=== PATIENT | female | born 1975 | race Caucasian/White ===

== ENCOUNTER 2017-07-04 12:32 | Inpatient (IN) | payer MEDICAID ==
[2017-07-04 13:12] LABS: % IMMATURE GRANULYOCYTES 0.1 % (0.0-1.1); ABSOLUTE IMMATURE GRANULOCYTES 0.01 10^3/uL (0.00-0.10); ADD DIFF? NO; ADD MORPH? NO; ADD SCAN? NO; ATYPICAL LYMPHOCYTE FLAG 10 (0-99); FRAGMENT RBC FLAG 0 (0-99); HEMATOCRIT 40.4 % (38.0-47.0); HEMOGLOBIN 13.7 g/dL (12.6-16.3); LEFT SHIFT FLG 0 (0-99); LIPEMIA HEMOLYSIS FLAG 90 (0-99); MEAN CELL HEMOGLOBIN 31.7 pg (27.9-34.1); MEAN CELL HEMOGLOBIN CONCENTR. 33.9 g/dL (32.4-36.7); MEAN CELL VOLUME 93.5 fL (81.5-99.8); MEAN PLATELET VOLUME 10.4 fL (8.7-11.7); PLATELET CLUMPS FLAG 0 (0-99); PLATELET COUNT 410 10^3/uL (150-400); RED BLOOD CELL COUNT 4.32 10^6/uL (4.18-5.33); RED CELL DISTRIBUTION WIDTH 13.8 % (11.5-15.2)
[2017-07-04 13:29] LABS: ANION GAP 14 mEq/L (8-16); CALCIUM 10.1 mg/dL (8.5-10.4); CARBON DIOXIDE 21 mEq/l (22-31); CHLORIDE 102 mEq/L (97-110); CREATININE 0.8 mg/dL (0.6-1.0); ETHANOL SERUM < 10 mg/dL (0-10); GLOMERULAR FILTRATION RATE > 60; GLUCOSE 86 mg/dL (70-100); POTASSIUM 4.2 mEq/L (3.5-5.2); SODIUM 137 mEq/L (134-144)
--- NOTE | 2017-07-04 14:14 | EDPHY ---
H & P Smoking Status: Never smoked Time Seen by Provider: 07/04/17 12:42 HPI/ROS: CHIEF COMPLAINT: M1 hold HISTORY OF PRESENT ILLNESS: 42-year-old female presents to the emergency department delusional with tangential thoughts. The patient states that she recently arrived from [place]. She states that she went to see her doctor for a colorectal problem and she states that they put her on a mental health hold. Patient currently has no physical complaints. No chest pain or difficulty breathing. No abdominal pain. No headache. She does not abuse drugs or alcohol. She states that she has depression and takes Abilify and Wellbutrin for "adult depression". REVIEW OF SYSTEMS: Constitutional: No fever, no chills. Eyes: No double or blurry vision. ENT: No sore throat. Respiratory: No cough, no shortness of breath. Cardiac: No chest pain. Gastrointestinal: No abdominal pain, vomiting or diarrhea. Genitourinary: No dysuria. Musculoskeletal: No neck or back pain. Skin: No rashes. Neurological: No headache. (Chelsea Lim) Past Medical/Surgical History: Depression (Chelsea Lim) Social History: Single (Chelsea Lim) Physical Exam: General Appearance: Alert, no distress. Eyes: Pupils equal and round. Extraocular motions are all intact. ENT: Mouth: Mucous membranes moist. Respiratory: No wheezing, rhonchi, or rales, lungs are clear to auscultation. Cardiovascular: Regular rate and rhythm. Gastrointestinal: Abdomen is soft and nontender, no masses, no rebound or guarding, bowel sounds normal. Neurological: Alert and oriented x 3, cranial nerves II through XII grossly intact Skin: Warm and dry, no rashes. Musculoskeletal: Nontender to palpate along the cervical, thoracic or lumbar spine. Neck is supple. Extremities: Full range of motion and no peripheral edema. Psychiatric: Patient is oriented X 3, there is no agitation. (Chelsea Lim) Constitutional: Initial Vital Signs Temperature (C) 36.9 C 07/04/17 12:42 Heart Rate 80 07/04/17 12:42 Respiratory Rate 16 07/04/17 12:42 Blood Pressure 148/101 H 07/04/17 12:42 O2 Sat (%) 98 07/04/17 12:42 O2 Delivery Mode Room Air Allergies/Adverse Reactions: Penicillins Allergy (Verified 07/04/17 12:41) red dye Allergy (Verified 07/04/17 12:41) Home Medications: Medication Instructions Recorded Abilify 07/04/17 Wellbutrin Sr 07/04/17 Medical Decision Making ED Course/Re-evaluation: 42-year-old female presents to the emergency department feeling depressed on M1 hold. She has been medically cleared and has been evaluated by mental health. She is awaiting inpatient placement. (Chelsea Lim) The patient was evaluated and managed by the physician prosthetic assistant. I have reviewed this chart and I agree with the findings and plan of care as documented , as indicated by my signature. I am the secondary supervising physician. I did assume primary care of this patient at 6:00 p.m.. She is being admitted to [address] [place] [address]. I have signed the EMTALA form. (Cesilia Barr) Differential Diagnosis: Depression including functional and major depression, situational depression, medication side effect, drugs and alcohol abuse. (Chelsea Lim) Care Turn Over: Care will be turned over to Dr. Cesilia Barr for disposition and plan. (Chelsea Lim) - Data Points Laboratory Results: Laboratory Results 07/04/17 12:55 07/04/17 12:55 07/04/17 07/04/17 07/04/17 13:58 12:55 12:55 WBC RBC Hgb Hct MCV MCH MCHC RDW Plt Count MPV Neut % (Auto) Lymph % (Auto) [place] % (Auto) Eos % (Auto) Baso % (Auto) Nucleat RBC Rel Count Absolute Neuts (auto) Absolute Lymphs (auto) Absolute Monos (auto) Absolute Eos (auto) Absolute Basos (auto) Absolute Nucleated RBC Immature Gran % Immature Gran # Sodium 137 mEq/L mEq/L (134-144) Potassium 4.2 mEq/L mEq/L (3.5-5.2) Chloride 102 mEq/L mEq/L (97-110) Carbon Dioxide 21 mEq/l L mEq/l (22-31) Anion Gap 14 mEq/L mEq/L (8-16) BUN 11 mg/dL mg/dL (7-23) Creatinine 0.8 mg/dL mg/dL (0.6-1.0) Estimated GFR > 60 Glucose 86 mg/dL mg/dL (70-100) Calcium 10.1 mg/dL mg/dL (8.5-10.4) TSH 1.470 uIU/mL uIU/mL (0.465-4.680) Beta HCG, Qual NEGATIVE Urine Opiates Screen NEGATIVE (NEGATIVE) Urine Barbiturates NEGATIVE (NEGATIVE) Ur Phencyclidine Scrn NEGATIVE (NEGATIVE) Ur Amphetamine Screen NEGATIVE (NEGATIVE) U Benzodiazepines Scrn NEGATIVE (NEGATIVE) Urine Cocaine Screen NEGATIVE (NEGATIVE) U Marijuana (THC) Screen NEGATIVE (NEGATIVE) Ethyl Alcohol < 10 mg/dL mg/dL (0-10) 07/04/17 12:55 WBC 8.07 10^3/uL 10^3/uL (3.80-9.50) RBC 4.32 10^6/uL 10^6/uL (4.18-5.33) Hgb 13.7 g/dL g/dL (12.6-16.3) Hct 40.4 % % (38.0-47.0) MCV 93.5 fL fL (81.5-99.8) MCH 31.7 pg pg (27.9-34.1) MCHC 33.9 g/dL g/dL (32.4-36.7) RDW 13.8 % % (11.5-15.2) Plt Count 410 10^3/uL H 10^3/uL (150-400) MPV 10.4 fL fL (8.7-11.7) Neut % (Auto) 46.6 % % (39.3-74.2) Lymph % (Auto) 38.8 % % (15.0-45.0) [place] % (Auto) 11.3 % % (4.5-13.0) Eos % (Auto) 2.5 % % (0.6-7.6) Baso % (Auto) 0.7 % % (0.3-1.7) Nucleat RBC Rel Count 0.0 % % (0.0-0.2) Absolute Neuts (auto) 3.76 10^3/uL 10^3/uL (1.70-6.50) Absolute Lymphs (auto) 3.13 10^3/uL H 10^3/uL (1.00-3.00) Absolute Monos (auto) 0.91 10^3/uL H 10^3/uL (0.30-0.80) Absolute Eos (auto) 0.20 10^3/uL 10^3/uL (0.03-0.40) Absolute Basos (auto) 0.06 10^3/uL 10^3/uL (0.02-0.10) Absolute Nucleated RBC 0.00 10^3/uL 10^3/uL (0-0.01) Immature Gran % 0.1 % % (0.0-1.1) Immature Gran # 0.01 10^3/uL 10^3/uL (0.00-0.10) Sodium Potassium Chloride Carbon Dioxide Anion Gap BUN Creatinine Estimated GFR Glucose Calcium TSH Beta HCG, Qual Urine Opiates Screen Urine Barbiturates Ur Phencyclidine Scrn Ur Amphetamine Screen U Benzodiazepines Scrn Urine Cocaine Screen U Marijuana (THC) Screen Ethyl Alcohol Departure - Departure Disposition: [facility] IP Clinical Impression: Depression Qualifiers: Depression Type: unspecified Qualified Code(s): F32.9 - Major depressive disorder, single episode, unspecified Condition: Good
[2017-07-04] MEDS ORDERED: MAGNESIUM HYDROXIDE 30 ML UDCUP PO PRN (20:45)
[2017-07-04] MEDS ORDERED: MAG HYDROX/AL HYDROX/SIMETH 30 ML UDCUP PO PRN (20:45)
[2017-07-04] MEDS ORDERED: OLANZapine DISINTEGR 5 MG TAB PO PRN (20:45)
[2017-07-04] MEDS ORDERED: NICOTINE POLACRILEX 2 MG GUM B PRN (20:45)
[2017-07-04] MEDS ORDERED: ACETAMINOPHEN 325 MG TAB PO PRN (20:45)
--- NOTE | 2017-07-05 13:40 | SOAPPROG ---
SOTREVOR Progress Note Assessment/Plan: Assessment: Plan: 07/05/17 13:39 Unable to fully assess patient today. Will return. Will obtain collateral from pt's payee if possible. Utilize prn's for now. Subjective: Pt seen briefly, chart reviewed, discussed with staff. She refuses to talk to me. States, "I'm, not talking to you, you're over 40 and not my demographic." Adamant about this, becoming agitated and hostile when I try to convince her that I am her psychiatrist and that she needs to talk to me. Unable to get any useful information from her. She states in the course of conversation that she does not have any mental illness and that she won't take any psychotropic medications. Objective: Vital Signs Temp Pulse Resp BP Pulse Ox 36.9 C 56 L 17 119/77 99 07/05/17 06:00 07/05/17 06:00 07/05/17 06:00 07/05/17 06:00 07/05/17 06:00 MSE: Marginally groomed, guarded, hostile, uncoop. Affect is constricted, irritable. Mood is not stated. TP appears disorganized, unable to give goal- directed answers to simple questions. TC reveals obvious disorganization, paranoia. - Time Spent With Patient Time Spent With Patient: 15" ICD10 Worksheet Patient Problems: Problems Problem Status Onset Depression Acute
--- NOTE | 2017-07-05 13:48 | BCON ---
[f rep st] BEHAVIORAL HEALTH CONSULTATION INTERNAL MEDICINE CONSULTATION DATE OF CONSULTATION: 07/05/2017 REFERRING PHYSICIAN: Ki Rose MD REASON FOR REFERRAL: Medical clearance for inpatient behavioral health stay. HISTORY OF PRESENT ILLNESS: This patient came to the [facility] Emergency Department, referred from a mental health clinic on an M1 hold for paranoid delusions and ideas of reference which were consistent with a psychotic episode. She was evaluated by the mental health team and admitted for further psychiatric care. Currently, she has no acute complaints. PAST MEDICAL HISTORY: 1. Mental health issues. 2. Daniel-Kandy syndrome. 3. Rectal prolapse. 4. A spinal cord injury. 5. Broken ankle. MEDICATIONS: She was taking aripiprazole and bupropion. ALLERGIES: Penicillins and red dye. SOCIAL HISTORY: She has been traveling, she has been in [place] for 2 weeks, and she does not provide any information beyond what can be gleaned from the medical record. FAMILY HISTORY: Noncontributory. REVIEW OF SYSTEMS: Could not be obtained due to noncooperation. PHYSICAL EXAM: VITAL SIGNS: Blood pressure is 119/77, heart rate is 56, respiratory rate is 17, oxygen saturation is 99% on room air, temperature is 36.9 degrees centigrade. Her weight is 58.5 kg, for a body mass index of 21.5. GENERAL: This is a well-nourished, well-developed woman, wearing large dark sunglasses, sitting cross-legged on the bed, eating a meal. She is verbally aggressive, threatening, and noncooperative. HEENT: Appears to be atraumatic, normocephalic. Dentition appears to be in good condition. NECK: Supple. CARDIOVASCULAR: Could not be completed. RESPIRATORY: She is not in respiratory distress, using no accessory muscles. There is no tachypnea. ABDOMINAL: Could not be completed. EXTREMITIES: There is no edema noted or cyanosis or clubbing. NEUROLOGIC: She is alert. She was not cooperative. Cranial nerves 2-12 appear to be grossly intact though her eyes are covered by dark sunglasses, limiting evaluation of cranial nerves 3-6. She moves all extremities. LABORATORY STUDIES: Drawn in the emergency department. CBC was overall within normal limits. She had a slightly elevated platelet count at 410. Serum chemistry reveals a slightly low carbon dioxide of 21; otherwise renal function and electrolytes were within normal limits. TSH was normal at 1.4, and beta hCG was negative for . Toxicology screen in the serum was negative for ethyl alcohol, and the urine was negative for any substances of abuse. ASSESSMENT/RECOMMENDATIONS: 1. Mental health issues pending further evaluation and management per Psychiatry and the mental health team. 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 There is no further specific evaluation or treatment indicated, and it should not affect her care on the inpatient behavioral health unit. I see no medical contraindications to this patient's continued stay on the inpatient behavioral health unit or to any psychiatric medications or procedures. Thank you very much for including me in the care of this patient, and please do not hesitate to contact me or the hospitalist service should there be need for further medical evaluation. /[id number]/MODL MTDD
--- NOTE | 2017-07-06 13:36 | BAPA ---
[f rep st] ADMISSION PSYCHIATRIC ASSESSMENT DATE OF SERVICE: 07/05/2017 CHIEF COMPLAINT: "I am not supposed to be here. You must release me immediately." HISTORY OF PRESENT ILLNESS: Patient is a 42-year-old female who was admitted from the emergency department after having presented to the walk-in clinic through [facility] requesting transportation and intermediate. She reported to them that she was stranded, having just arrived from [place], but could not explain why she was in [place]. She was disorganized and seemed to be paranoid as well. She describes some bizarre thoughts, such as the police placing people in groups that she described as "fillers" to conduct espionage and that she would be unsafe in this situation. She stated that she did not want to take any kind of medications though stated that she had them "forced on me" in the past. She then would deny any history of mental illness. She believes that a psychiatrist misdiagnosed her in the past. She did state that she had taken Abilify and Wellbutrin in the past. When I attempted to interview her yesterday and today, she became agitated, verbally aggressive, telling me to leave the room, and stating that she would scratch me with her fingernails or that she would find out where I live and kill my family. She also stated, "You are not in my demographic." She then made references to my genitalia in a threatening manner. She is unwilling to answer any questions, stating repeatedly that she does not have a mental illness and will not talk to a psychiatrist or take any psychotropic medications. PAST PSYCHIATRIC HISTORY: Somewhat unclear. The patient has clearly seen a psychiatrist and taken psychotropic medicines in the past, despite her admonitions otherwise. She stated to [facility] that she saw a Dr. Young at some point in the past though it is unknown where. As mentioned above, she stated she took Abilify and Wellbutrin at some point in the past. ALLERGIES: Penicillin and red dye. CURRENT MEDICATIONS: Patient reports no current medications. PAST MEDICAL HISTORY: Patient reports no medical problems. SOCIAL HISTORY: Patient was apparently previously living in [place] and came to [place] about 2 weeks ago. It is unclear whether this was intended to be a permanent move or not. She reported to [facility] that she had been staying in hotels and at the [facility] since arriving in [place]. No other history is obtainable by me at this time. FAMILY HISTORY: Unknown. ADMISSION LABORATORY: CBC is normal. Serum chemistries are normal. Beta hCG is negative. TSH is normal at 1.47. Urine drug screen is negative for all substances. Alcohol is less than detectable. MENTAL STATUS EXAMINATION: Reveals a small, thin, though healthy-appearing, female. She is wearing dark glasses because of some eye irritation. She is hostile and frequently makes hand gestures to get out of the room and shows me her long acrylic fingernails stating that she will scratch me. She states that she will harm me and my family. Her affect is irritable, labile. Her mood is described as "none of your business." Her thought process appears to be tangential. Her thought content appears to include paranoia and persecutory delusions. She is attentive and appears to be oriented to place, says she knows she is in a psychiatric facility, though she refused to answer specific questions. She makes threats to harm and kill my family, though makes no other threats toward herself or others. Her insight and judgment appear to be poor. IMPRESSION: 1. Bipolar I disorder, most recent episode manic, severe, with psychosis. Possible Schizoaffective disorder, Bipolar type. 2. Homelessness, lack of supports, recent travel. 3. Chronic illness. 4. Treatment non-compliance. Patient is a 42-year-old female with a history of likely bipolar disorder who seems to be suffering from a recurrent divya with psychosis. She is quite disagreeable, threatening, and uncooperative. She is currently on an M1 hold, which we will convert to a short-term certification, and then proceed with a court ordered medication petition. In the interim, we will use medications on an emergency basis and attempt to establish a therapeutic alliance. I will likely utilize Zyprexa as the primary agent at this time. I am unable to review the risks, benefits, and alternatives with the patient due to her highly uncooperative manner and will reserve this only for emergency needs. Estimated length of stay is 7-10 days with treatment. Longer if we have to wait for court. /[id number]/MODL MTDD
--- NOTE | 2017-07-08 09:02 | SOAPPROG ---
SOAP Progress Note Assessment/Plan: Assessment: Plan: 07/05/17 13:39 Unable to fully assess patient today. Will return. Will obtain collateral from pt's payee if possible. Utilize prn's for now. 07/08/17 09:03 Remains agitated, hostile. Will continues to encourage meds, place on STC. I am unable to discuss criteria for discontinuing STC due to pt's refusal to talk to me. Will enter petition for COM. Subjective: LATE ENTRY FOR 07/07/17. Pt seen briefly, discussed with staff. She again refuses to talk to me. Becomes agitated, forcing me out of her room when I attempted to interview her. REmains isolative, paranoid, insulting to staff and fellow patients, irritable /hostile. She continues to refuse consideration of psychotropic medications. I specifically discussed with her the possible use of Zyprexa. Objective: Vital Signs Temp Pulse Resp BP Pulse Ox 36.9 C 56 L 17 119/77 99 07/05/17 06:00 07/05/17 06:00 07/05/17 06:00 07/05/17 06:00 07/05/17 06:00 MSE: Agitated, hostile. Refuses interview. Affect is irritable, elevated, expansive. TP appears disorganized, repeats phrases, "I'm wont talk to you, you 're too old" and "Get out of her you have saggy balls." - Time Spent With Patient Time Spent With Patient: 15" - Pending Discharge Pending Discharge Within 24 Hours: No Pending Discharge Within 48 Hours: No ICD10 Worksheet Patient Problems: Problems Problem Status Onset Depression Acute
--- NOTE | 2017-07-08 19:55 | SOAPPROG ---
SOAP Progress Note Assessment/Plan: Assessment: Plan: 07/05/17 13:39 Unable to fully assess patient today. Will return. Will obtain collateral from pt's payee if possible. Utilize prn's for now. 07/08/17 09:03 Remains agitated, hostile. Will continues to encourage meds, place on STC. I am unable to discuss criteria for discontinuing STC due to pt's refusal to talk to me. Will enter petition for COM. 07/08/17 19:55 Remains psychotic, threatening. Will [facility], send request for COM. Subjective: Pt seen, discussed with staff. Refuses interview again. Remains isolative, threatening, paranoid. Continues to refuse all meds. Staff observed pt sitting in room talking loudly to self on evening shift yesterday. Objective: Vital Signs Temp Pulse Resp BP Pulse Ox 36.9 C 56 L 17 119/77 99 07/05/17 06:00 07/05/17 06:00 07/05/17 06:00 07/05/17 06:00 07/05/17 06:00 MSE: Agitated, hostile. Affect is o/w volatile, angry. TP appears disorganized. TC reveals RIS, paranoia. - Time Spent With Patient Time Spent With Patient: 15' ICD10 Worksheet Patient Problems: Problems Problem Status Onset Depression Acute
[2017-07-08] MEDS: OLANZapine DISINTEGR 10 MG TAB PO SCH (20:20)
--- NOTE | 2017-07-09 15:18 | SOAPPROG ---
SOAP Progress Note Assessment/Plan: Assessment: Plan: 07/05/17 13:39 Unable to fully assess patient today. Will return. Will obtain collateral from pt's payee if possible. Utilize prn's for now. 07/08/17 09:03 Remains agitated, hostile. Will continues to encourage meds, place on STC. I am unable to discuss criteria for discontinuing STC due to pt's refusal to talk to me. Will enter petition for COM. 07/08/17 19:55 Remains psychotic, threatening. Will [facility], send request for COM. 07/09/17 15:18 No change. Remains quite psychotic. [facility]. COM request sent. Will not allow pt to purposefully incite aggressive or violent behaviors. Will utilize show of force or E-meds if necessary as she is completely unresponsive to verbal redirection. Subjective: Pt seen, discussed with staff. Remains very hostile. Refuses to talk to me again today. Screams at me when I ask if she will discuss her plan of care, "Fuck you you fucking faggot. You have saggy balls and want to rape me! Get out of here." Later came out of room when another patient was acting out loudly and began yelling insults at security and trying to incite the agitated patients. When I arrived, she was smirking and huber back to her room as if pleased with her behaviors. Objective: Vital Signs Temp Pulse Resp BP Pulse Ox 36.9 C 56 L 17 119/77 99 07/05/17 06:00 07/05/17 06:00 07/05/17 06:00 07/05/17 06:00 07/05/17 06:00 - Time Spent With Patient Time Spent With Patient: 15" ICD10 Worksheet Patient Problems: Problems Problem Status Onset Depression Acute
[2017-07-09] MEDS: OLANZapine DISINTEGR 10 MG TAB PO SCH (20:14)
--- NOTE | 2017-07-10 12:54 | SOAPPROG ---
SOAP Progress Note Assessment/Plan: Assessment: Plan: 07/05/17 13:39 Unable to fully assess patient today. Will return. Will obtain collateral from pt's payee if possible. Utilize prn's for now. 07/08/17 09:03 Remains agitated, hostile. Will continues to encourage meds, place on STC. I am unable to discuss criteria for discontinuing STC due to pt's refusal to talk to me. Will enter petition for COM. 07/08/17 19:55 Remains psychotic, threatening. Will [facility], send request for COM. 07/09/17 15:18 No change. Remains quite psychotic. [facility]. COM request sent. Will not allow pt to purposefully incite aggressive or violent behaviors. Will utilize show of force or E-meds if necessary as she is completely unresponsive to verbal redirection. 07/10/17 12:53 No change. [facility]. Subjective: Pt seen, discussed with staff. Refuses interview with dave tom. Continues to isolate in her room except for meals. Continues to refuse meds. Objective: Vital Signs Temp Pulse Resp BP Pulse Ox 36.9 C 56 L 17 119/77 99 07/05/17 06:00 07/05/17 06:00 07/05/17 06:00 07/05/17 06:00 07/05/17 06:00 MSE: Agitated, hostile, uncoop. Affect is constricted, irritable. Mood is not stated. Appears disorganized. - Time Spent With Patient Time Spent With Patient: 15" ICD10 Worksheet Patient Problems: Problems Problem Status Onset Depression Acute
[2017-07-10] MEDS: OLANZapine DISINTEGR 10 MG TAB PO SCH (20:48)
[2017-07-11] MEDS: OLANZapine DISINTEGR 10 MG TAB PO SCH (19:54)
--- NOTE | 2017-07-11 20:33 | SOAPPROG ---
SOAP Progress Note Assessment/Plan: Assessment: Plan: 07/05/17 13:39 Unable to fully assess patient today. Will return. Will obtain collateral from pt's payee if possible. Utilize prn's for now. 07/08/17 09:03 Remains agitated, hostile. Will continues to encourage meds, place on STC. I am unable to discuss criteria for discontinuing STC due to pt's refusal to talk to me. Will enter petition for COM. 07/08/17 19:55 Remains psychotic, threatening. Will [facility], send request for COM. 07/09/17 15:18 No change. Remains quite psychotic. [facility]. [facility] request sent. Will not allow pt to purposefully incite aggressive or violent behaviors. Will utilize show of force or E-meds if necessary as she is completely unresponsive to verbal redirection. 07/10/17 12:53 No change. CCM. 07/11/17 20:33 Remains psychotic. [facility]. Await hearing for COM. Subjective: Pt seen, discussed with staff. Continues to isolate in her room. Profanely refuses interview again today. Refuses to discuss meds or treatment plan. refusing all treatments. Objective: Vital Signs Temp Pulse Resp BP Pulse Ox 36.9 C 56 L 17 119/77 99 07/05/17 06:00 07/05/17 06:00 07/05/17 06:00 07/05/17 06:00 07/05/17 06:00 MSE: Lying in bed swearing at me. Refuses to get up until she jumps out of bed , puts on her dark glasses and slams the door in my face. - Time Spent With Patient Time Spent With Patient: 15" ICD10 Worksheet Patient Problems: Problems Problem Status Onset Depression Acute
--- NOTE | 2017-07-12 11:48 | SOAPPROG ---
SOAP Progress Note Assessment/Plan: Assessment: Plan: 07/05/17 13:39 Unable to fully assess patient today. Will return. Will obtain collateral from pt's payee if possible. Utilize prn's for now. 07/08/17 09:03 Remains agitated, hostile. Will continues to encourage meds, place on STC. I am unable to discuss criteria for discontinuing STC due to pt's refusal to talk to me. Will enter petition for COM. 07/08/17 19:55 Remains psychotic, threatening. Will [facility], send request for COM. 07/09/17 15:18 No change. Remains quite psychotic. [facility]. [facility] request sent. Will not allow pt to purposefully incite aggressive or violent behaviors. Will utilize show of force or E-meds if necessary as she is completely unresponsive to verbal redirection. 07/10/17 12:53 No change. CCM. 07/11/17 20:33 Remains psychotic. [facility]. Await hearing for COM. 07/12/17 11:48 Remains psychotic, agitated. [facility]. Await COM hearing. Subjective: Pt seen, discussed with staff. Continues to refuse interview. Unable to get any useful information. She continues to refuse medications. Staff notes poor PO intake, eating less than one full meal per day. Was eating only pre- packaged meals but now is refusing almost all meals. Objective: Vital Signs Temp Pulse Resp BP Pulse Ox 36.9 C 56 L 17 119/77 99 07/05/17 06:00 07/05/17 06:00 07/05/17 06:00 07/05/17 06:00 07/05/17 06:00 MSE: Hostile, uncoop. Affect is o/w irritable. TP appears disorganized. TC appears to be paranoid, ? AH's. - Time Spent With Patient Time Spent With Patient: 15" ICD10 Worksheet Patient Problems: Problems Problem Status Onset Depression Acute
[2017-07-12] MEDS: OLANZapine DISINTEGR 10 MG TAB PO SCH (20:08)
--- NOTE | 2017-07-13 14:06 | SOAPPROG ---
SOAP Progress Note Assessment/Plan: Assessment: Bipolar, mixed, irritable - provisional No meaningful interaction with me today. No clear improvement Plan: Continue current plan. 07/13/17 14:06 Subjective: "Get out of my room." "You're a fucking faggot." "I know where you live." "Close my door." Slept 10 hours per sleep record. Declines interview. Objective: Vital Signs Temp Pulse Resp BP Pulse Ox 36.9 C 56 L 17 119/77 99 07/05/17 06:00 07/05/17 06:00 07/05/17 06:00 07/05/17 06:00 07/05/17 06:00 Medications Generic Name Dose Route Start Last Admin Trade Name Freq PRN Reason Stop Dose Admin Olanzapine 10 mg 07/08/17 20:15 07/12/17 20:08 Zyprexa Zydis PO 01/04/18 20:14 Not Given HS BROOKE Lying in bed with covers pulled over head and does not interact with me to any meaningful degree. ICD10 Worksheet Patient Problems: Problems Problem Status Onset Depression Acute
[2017-07-13] MEDS: OLANZapine DISINTEGR 10 MG TAB PO SCH (21:05)
--- NOTE | 2017-07-14 14:23 | SOAPPROG ---
SOAP Progress Note Assessment/Plan: Assessment: Plan: 07/05/17 13:39 Unable to fully assess patient today. Will return. Will obtain collateral from pt's payee if possible. Utilize prn's for now. 07/08/17 09:03 Remains agitated, hostile. Will continues to encourage meds, place on STC. I am unable to discuss criteria for discontinuing STC due to pt's refusal to talk to me. Will enter petition for COM. 07/08/17 19:55 Remains psychotic, threatening. Will [facility], send request for COM. 07/09/17 15:18 No change. Remains quite psychotic. [facility]. [facility] request sent. Will not allow pt to purposefully incite aggressive or violent behaviors. Will utilize show of force or E-meds if necessary as she is completely unresponsive to verbal redirection. 07/10/17 12:53 No change. CCM. 07/11/17 20:33 Remains psychotic. [facility]. Await hearing for COM. 07/12/17 11:48 Remains psychotic, agitated. [facility]. Await COM hearing. 07/14/17 14:23 No change. Pt's lack of nutritional intake is concerning. Will attempt to intervene. [facility]. Await COM hearing. Subjective: Pt seen, discussed with staff. Continues to isolate in her room. Threatening to cut staff members' heads off and kill their children. Some collateral information obtained, but not clinically useful. Continues to refuse all medications. Eating poorly, refusing most meals now. Objective: Vital Signs Temp Pulse Resp BP Pulse Ox 36.9 C 56 L 17 119/77 99 07/05/17 06:00 07/05/17 06:00 07/05/17 06:00 07/05/17 06:00 07/05/17 06:00 MSE: Hostile, guarded, profane. Affect is irritable, expansive. TP is disorganized. TC reveals paranoia, AH's. - Time Spent With Patient Time Spent With Patient: 15" ICD10 Worksheet Patient Problems: Problems Problem Status Onset Depression Acute
[2017-07-14] MEDS: OLANZapine DISINTEGR 10 MG TAB PO SCH (19:47)
[2017-07-15] MEDS ORDERED: HALOPERIDOL LACT 5 MG/ML INJ IM PRN ×2 (10:43)
[2017-07-15] MEDS ORDERED: OLANZapine 10 MG/2 ML VIAL IM PRN (11:22)
[2017-07-15] MEDS: OLANZapine 10 MG/2 ML VIAL IM PRN ×2 (11:53→20:27)
--- NOTE | 2017-07-15 17:24 | SOAPPROG ---
SOAP Progress Note Assessment/Plan: Assessment: Plan: 07/05/17 13:39 Unable to fully assess patient today. Will return. Will obtain collateral from pt's payee if possible. Utilize prn's for now. 07/08/17 09:03 Remains agitated, hostile. Will continues to encourage meds, place on STC. I am unable to discuss criteria for discontinuing STC due to pt's refusal to talk to me. Will enter petition for COM. 07/08/17 19:55 Remains psychotic, threatening. Will [facility], send request for COM. 07/09/17 15:18 No change. Remains quite psychotic. [facility]. [facility] request sent. Will not allow pt to purposefully incite aggressive or violent behaviors. Will utilize show of force or E-meds if necessary as she is completely unresponsive to verbal redirection. 07/10/17 12:53 No change. CCM. 07/11/17 20:33 Remains psychotic. [facility]. Await hearing for COM. 07/12/17 11:48 Remains psychotic, agitated. [facility]. Await COM hearing. 07/14/17 14:23 No change. Pt's lack of nutritional intake is concerning. Will attempt to intervene. [facility]. Await COM hearing. 07/15/17 17:20 Remains agitated, threatening, aggressive, psychotic. Appreciate input from [facility]. She does not appear to be in a life-threatening situation at this point that would necessitate a feeding tube, but she is close. Will employ E-meds consistently due to urgent nature of nutritional issue and aggression that both have foundations in psychosis. Await hearing for COM. Subjective: Pt seen, discussed with staff. Remains hostile, threatening. Continues to refuse to eat or drink. Staff suspects pt is drinking from faucet in room. Vital signs are stable and she is energetic. Staff attempted to meet with her to discuss this and she became agitated and threatening and threw her food tray. Objective: Vital Signs Temp Pulse Resp BP Pulse Ox 36.9 C 56 L 17 119/77 99 07/05/17 06:00 07/05/17 06:00 07/05/17 06:00 07/05/17 06:00 07/05/17 06:00 MSE: Agitated, profane, threatening, violent. TP is disorganized. TC reveals paranoia, AH's. - Time Spent With Patient Time Spent With Patient: 25" - Pending Discharge Pending Discharge Within 24 Hours: No Pending Discharge Within 48 Hours: No ICD10 Worksheet Patient Problems: Problems Problem Status Onset Depression Acute
[2017-07-15] MEDS: OLANZapine DISINTEGR 10 MG TAB PO SCH (20:51)
[2017-07-16] MEDS ORDERED: OLANZapine 10 MG/2 ML VIAL IM PRN (12:31)
[2017-07-16] MEDS ORDERED: OLANZapine DISINTEGR 10 MG TAB PO PRN (12:31)
--- NOTE | 2017-07-16 13:06 | SOAPPROG ---
SOAP Progress Note Assessment/Plan: Assessment: Plan: 07/05/17 13:39 Unable to fully assess patient today. Will return. Will obtain collateral from pt's payee if possible. Utilize prn's for now. 07/08/17 09:03 Remains agitated, hostile. Will continues to encourage meds, place on STC. I am unable to discuss criteria for discontinuing STC due to pt's refusal to talk to me. Will enter petition for COM. 07/08/17 19:55 Remains psychotic, threatening. Will [facility], send request for COM. 07/09/17 15:18 No change. Remains quite psychotic. [facility]. [facility] request sent. Will not allow pt to purposefully incite aggressive or violent behaviors. Will utilize show of force or E-meds if necessary as she is completely unresponsive to verbal redirection. 07/10/17 12:53 No change. CCM. 07/11/17 20:33 Remains psychotic. [facility]. Await hearing for COM. 07/12/17 11:48 Remains psychotic, agitated. [facility]. Await COM hearing. 07/14/17 14:23 No change. Pt's lack of nutritional intake is concerning. Will attempt to intervene. [facility]. Await COM hearing. 07/15/17 17:20 Remains agitated, threatening, aggressive, psychotic. Appreciate input from [facility]. She does not appear to be in a life-threatening situation at this point that would necessitate a feeding tube, but she is close. Will employ E-meds consistently due to urgent nature of nutritional issue and aggression that both have foundations in psychosis. Await hearing for COM. 07/16/17 13:05 No change in clinical condition. Will [facility] inc: Emeds due to gravity of condition. Subjective: Pt seen, discussed with staff. Continues to isolate in her room. Refusing all meds. Given Emeds yesterday with notable decrease in agitation. Continues to refuse food offered by staff. Objective: Vital Signs Temp Pulse Resp BP Pulse Ox 36.9 C 56 L 17 119/77 99 07/05/17 06:00 07/05/17 06:00 07/05/17 06:00 07/05/17 06:00 07/05/17 06:00 MSE: Angry, uncoop, threatening. TP is disorganized. TC reveals paranoia, AH' s. - Time Spent With Patient Time Spent With Patient: 15" ICD10 Worksheet Patient Problems: Problems Problem Status Onset Depression Acute
[2017-07-16] MEDS: OLANZapine DISINTEGR 10 MG TAB PO SCH (20:52)
[2017-07-17] MEDS ORDERED: OLANZapine 10 MG/2 ML VIAL IM PRN (13:11)
--- NOTE | 2017-07-17 13:19 | SOAPPROG ---
SOAP Progress Note Assessment/Plan: Assessment: Per Dr. Egan's notes: 07/05/17 13:39 Unable to fully assess patient today. Will return. Will obtain collateral from pt's payee if possible. Utilize prn's for now. 07/08/17 09:03 Remains agitated, hostile. Will continues to encourage meds, place on STC. I am unable to discuss criteria for discontinuing STC due to pt's refusal to talk to me. Will enter petition for COM. 07/08/17 19:55 Remains psychotic, threatening. Will [facility], send request for COM. 07/09/17 15:18 No change. Remains quite psychotic. [facility]. [facility] request sent. Will not allow pt to purposefully incite aggressive or violent behaviors. Will utilize show of force or E-meds if necessary as she is completely unresponsive to verbal redirection. 07/10/17 12:53 No change. CCM. 07/11/17 20:33 Remains psychotic. [facility]. Await hearing for COM. 07/12/17 11:48 Remains psychotic, agitated. [facility]. Await [facility] hearing. 07/14/17 14:23 No change. Pt's lack of nutritional intake is concerning. Will attempt to intervene. [facility]. Await COM hearing. 07/15/17 17:20 Remains agitated, threatening, aggressive, psychotic. Appreciate input from [facility]. She does not appear to be in a life-threatening situation at this point that would necessitate a feeding tube, but she is close. Will employ E-meds consistently due to urgent nature of nutritional issue and aggression that both have foundations in psychosis. Await hearing for COM. 07/16/17 13:05 No change in clinical condition. Will [facility] inc: Emeds due to gravity of condition. 07/17/17 13:15 Plan: 1. Continue E-meds Day #4 2. Will change Zyprexa to 10mg BID Subjective: Met with patient and discussed with staff. Patient continues to isolate in her room and refuses to eat food, but staff observe that she is drinking water. When MD attempted to talk to her, she yelled at him from bed, "Get out of here motherfucker!" Objective: Vital Signs Temp Pulse Resp BP Pulse Ox 36.9 C 56 L 17 119/77 99 07/05/17 06:00 07/05/17 06:00 07/05/17 06:00 07/05/17 06:00 07/05/17 06:00 MSE: Hostile, angry, threatening. Affect: Hostile Mood: Angry TP: Disorganized TC: Paranoid Insight/Judgment: Impaired - Time Spent With Patient Time Spent With Patient: 10" - Pending Discharge Pending Discharge Within 24 Hours: No Pending Discharge Within 48 Hours: No ICD10 Worksheet Patient Problems: Problems Problem Status Onset Depression Acute
[2017-07-17] MEDS: OLANZapine DISINTEGR 10 MG TAB PO SCH ×2 (14:14→20:44)
[2017-07-17] MEDS ORDERED: OLANZapine DISINTEGR 10 MG TAB PO SCH (21:00)
[2017-07-18] MEDS: OLANZapine DISINTEGR 10 MG TAB PO SCH ×2 (10:04→21:00)
--- NOTE | 2017-07-18 12:57 | SOAPPROG ---
SOAP Progress Note Assessment/Plan: Assessment: Per Dr. Egan's notes: 07/05/17 13:39 Unable to fully assess patient today. Will return. Will obtain collateral from pt's payee if possible. Utilize prn's for now. 07/08/17 09:03 Remains agitated, hostile. Will continues to encourage meds, place on STC. I am unable to discuss criteria for discontinuing STC due to pt's refusal to talk to me. Will enter petition for COM. 07/08/17 19:55 Remains psychotic, threatening. Will [facility], send request for COM. 07/09/17 15:18 No change. Remains quite psychotic. [facility]. [facility] request sent. Will not allow pt to purposefully incite aggressive or violent behaviors. Will utilize show of force or E-meds if necessary as she is completely unresponsive to verbal redirection. 07/10/17 12:53 No change. CCM. 07/11/17 20:33 Remains psychotic. [facility]. Await hearing for COM. 07/12/17 11:48 Remains psychotic, agitated. [facility]. Await COM hearing. 07/14/17 14:23 No change. Pt's lack of nutritional intake is concerning. Will attempt to intervene. [facility]. Await COM hearing. 07/15/17 17:20 Remains agitated, threatening, aggressive, psychotic. Appreciate input from [facility]. She does not appear to be in a life-threatening situation at this point that would necessitate a feeding tube, but she is close. Will employ E-meds consistently due to urgent nature of nutritional issue and aggression that both have foundations in psychosis. Await hearing for COM. 07/16/17 13:05 No change in clinical condition. Will [facility] inc: Emeds due to gravity of condition. 07/17/17 13:15 Plan: 1. Continue E-meds Day #4 2. Will change Zyprexa to 10mg BID 07/18/17 12:53 1. Patient has been calmer, less hostile when engaging with staff. She took PO Zyprexa voluntarily this AM. 2. Continue on E-meds Day #5 as patient is improving slightly. 3. Patient ate several yogurts for snack yesterday and a peanut butter and jelly sandwich. She has been filling water bottle from faucet in her room and drinking regularly. Subjective: Met with patient and discussed with staff. Patient was out of her room wearing sunglasses. She made requests of staff in less hostile attitude. However, she did tell MD to "fuck off" when he attempted to engage her in conversation. She also called [facility] and reported she was being held captive. Her phone privileges have been restricted. Objective: Vital Signs Temp Pulse Resp BP Pulse Ox 36.9 C 56 L 17 119/77 99 07/05/17 06:00 07/05/17 06:00 07/05/17 06:00 07/05/17 06:00 07/05/17 06:00 MSE: Less angry, hostile, but still verbally abusive to some staff. Affect: Labile Mood: Angry TP: Disorganized, illogical TC: Denies any SI/HI, paranoid , delusions Insight/Judgment: Impaired - Time Spent With Patient Time Spent With Patient: 10" - Pending Discharge Pending Discharge Within 24 Hours: No Pending Discharge Within 48 Hours: No ICD10 Worksheet Patient Problems: Problems Problem Status Onset Depression Acute
[2017-07-18] MEDS ORDERED: OLANZapine 10 MG/2 ML VIAL IM PRN (13:11)
[2017-07-19] MEDS: OLANZapine DISINTEGR 10 MG TAB PO SCH ×2 (08:39→20:51)
[2017-07-19] MEDS ORDERED: OLANZapine 10 MG/2 ML VIAL IM PRN (16:46)
--- NOTE | 2017-07-19 16:46 | SOAPPROG ---
SOAP Progress Note Assessment/Plan: Assessment: Plan: 07/05/17 13:39 Unable to fully assess patient today. Will return. Will obtain collateral from pt's payee if possible. Utilize prn's for now. 07/08/17 09:03 Remains agitated, hostile. Will continues to encourage meds, place on STC. I am unable to discuss criteria for discontinuing STC due to pt's refusal to talk to me. Will enter petition for COM. 07/08/17 19:55 Remains psychotic, threatening. Will [facility], send request for COM. 07/09/17 15:18 No change. Remains quite psychotic. [facility]. [facility] request sent. Will not allow pt to purposefully incite aggressive or violent behaviors. Will utilize show of force or E-meds if necessary as she is completely unresponsive to verbal redirection. 07/10/17 12:53 No change. CCM. 07/11/17 20:33 Remains psychotic. [facility]. Await hearing for COM. 07/12/17 11:48 Remains psychotic, agitated. [facility]. Await COM hearing. 07/14/17 14:23 No change. Pt's lack of nutritional intake is concerning. Will attempt to intervene. [facility]. Await COM hearing. 07/15/17 17:20 Remains agitated, threatening, aggressive, psychotic. Appreciate input from [facility]. She does not appear to be in a life-threatening situation at this point that would necessitate a feeding tube, but she is close. Will employ E-meds consistently due to urgent nature of nutritional issue and aggression that both have foundations in psychosis. Await hearing for COM. 07/16/17 13:05 No change in clinical condition. Will [facility] inc: Emeds due to gravity of condition. 07/19/17 16:45 Improved with Zyprexa. [facility]. Subjective: Pt seen, discussed with staff, chart reviewed. She continues to refuse to speak to me though reportedly did have a brief conversation with the RN earlier before decompensating into disorganized psychotic thought. Has bee compliant with Zyprexa with threat of IM. Eating better since starting Zyprexa. Objective: Vital Signs Temp Pulse Resp BP Pulse Ox 36.9 C 56 L 17 119/77 99 07/05/17 06:00 07/05/17 06:00 07/05/17 06:00 07/05/17 06:00 07/05/17 06:00 - Time Spent With Patient Time Spent With Patient: 15" ICD10 Worksheet Patient Problems: Problems Problem Status Onset Depression Acute
[2017-07-20] MEDS: OLANZapine DISINTEGR 10 MG TAB PO SCH ×2 (08:46→20:20)
--- NOTE | 2017-07-20 17:18 | SOAPPROG ---
SOAP Progress Note Assessment/Plan: Assessment: Plan: 07/05/17 13:39 Unable to fully assess patient today. Will return. Will obtain collateral from pt's payee if possible. Utilize prn's for now. 07/08/17 09:03 Remains agitated, hostile. Will continues to encourage meds, place on STC. I am unable to discuss criteria for discontinuing STC due to pt's refusal to talk to me. Will enter petition for COM. 07/08/17 19:55 Remains psychotic, threatening. Will [facility], send request for COM. 07/09/17 15:18 No change. Remains quite psychotic. [facility]. [facility] request sent. Will not allow pt to purposefully incite aggressive or violent behaviors. Will utilize show of force or E-meds if necessary as she is completely unresponsive to verbal redirection. 07/10/17 12:53 No change. CCM. 07/11/17 20:33 Remains psychotic. [facility]. Await hearing for COM. 07/12/17 11:48 Remains psychotic, agitated. [facility]. Await COM hearing. 07/14/17 14:23 No change. Pt's lack of nutritional intake is concerning. Will attempt to intervene. [facility]. Await COM hearing. 07/15/17 17:20 Remains agitated, threatening, aggressive, psychotic. Appreciate input from [facility]. She does not appear to be in a life-threatening situation at this point that would necessitate a feeding tube, but she is close. Will employ E-meds consistently due to urgent nature of nutritional issue and aggression that both have foundations in psychosis. Await hearing for COM. 07/16/17 13:05 No change in clinical condition. Will [facility] inc: Emeds due to gravity of condition. 07/19/17 16:45 Improved with Zyprexa. CCM. 07/20/17 17:18 Remains psychotic. Will [facility] inc: Emeds. Responding well to this. Subjective: Pt seen, discussed with staff. Continues to refuse interview with me. I asked several times to discuss her meds and the upcoming court hearing but she refuses. She has been compliant with PO Emeds to avoid IM's. Eating much better, though continues to only eat packaged foods. Less profane and threatening with some female staff she has built a rapport with. Remains paranoid, stating to RN that she is searching for some criminals and describing complex groups of people working for and against her. Objective: Vital Signs Temp Pulse Resp BP Pulse Ox 36.9 C 56 L 17 119/77 99 07/05/17 06:00 07/05/17 06:00 07/05/17 06:00 07/05/17 06:00 07/05/17 06:00 - Time Spent With Patient Time Spent With Patient: 15" ICD10 Worksheet Patient Problems: Problems Problem Status Onset Depression Acute
[2017-07-20] MEDS ORDERED: OLANZapine 10 MG/2 ML VIAL IM PRN (17:21)
[2017-07-21] MEDS: OLANZapine DISINTEGR 10 MG TAB PO SCH ×4 (08:23→20:03)
[2017-07-22] MEDS: OLANZapine DISINTEGR 10 MG TAB PO SCH ×2 (08:41→20:48)
--- NOTE | 2017-07-22 17:02 | SOAPPROG ---
SOAP Progress Note Assessment/Plan: Assessment: Plan: 07/05/17 13:39 Unable to fully assess patient today. Will return. Will obtain collateral from pt's payee if possible. Utilize prn's for now. 07/08/17 09:03 Remains agitated, hostile. Will continues to encourage meds, place on STC. I am unable to discuss criteria for discontinuing STC due to pt's refusal to talk to me. Will enter petition for COM. 07/08/17 19:55 Remains psychotic, threatening. Will [facility], send request for COM. 07/09/17 15:18 No change. Remains quite psychotic. [facility]. [facility] request sent. Will not allow pt to purposefully incite aggressive or violent behaviors. Will utilize show of force or E-meds if necessary as she is completely unresponsive to verbal redirection. 07/10/17 12:53 No change. CCM. 07/11/17 20:33 Remains psychotic. [facility]. Await hearing for COM. 07/12/17 11:48 Remains psychotic, agitated. [facility]. Await [facility] hearing. 07/14/17 14:23 No change. Pt's lack of nutritional intake is concerning. Will attempt to intervene. [facility]. Await [facility] hearing. 07/15/17 17:20 Remains agitated, threatening, aggressive, psychotic. Appreciate input from [facility]. She does not appear to be in a life-threatening situation at this point that would necessitate a feeding tube, but she is close. Will employ E-meds consistently due to urgent nature of nutritional issue and aggression that both have foundations in psychosis. Await hearing for COM. 07/16/17 13:05 No change in clinical condition. Will [facility] inc: Emeds due to gravity of condition. 07/19/17 16:45 Improved with Zyprexa. [facility]. 07/20/17 17:18 Remains psychotic. Will [facility] inc: Emeds. Responding well to this. 07/22/17 17:01 Some overall improvement with Zyprexa. Will cross over to [place] in preparation for [place]. Subjective: Pt seen, discussed with staff. Refuses to talk to me before or after court. Refused to attend COM hearing. Oncology Rn approved petition for COM. Continues to eat at least two meals per day. Objective: Vital Signs Temp Pulse Resp BP Pulse Ox 36.9 C 56 L 17 119/77 99 07/05/17 06:00 07/05/17 06:00 07/05/17 06:00 07/05/17 06:00 07/05/17 06:00 MSE: Marginally groomed, hostile, uncoop. Affect is irritable, constricted, though less volatile. Mood is "bad." TP remains disorganized. TC reveals continued paranoid and bizarre delusions. - Time Spent With Patient Time Spent With Patient: 55" - Pending Discharge Pending Discharge Within 24 Hours: No ICD10 Worksheet Patient Problems: Problems Problem Status Onset Depression Acute
[2017-07-22] MEDS ORDERED: OLANZapine 10 MG/2 ML VIAL IM PRN (17:04)
[2017-07-23] MEDS: PALIPERIDONE 3 MG TAB.ER PO SCH (08:36)
--- NOTE | 2017-07-23 13:32 | SOAPPROG ---
SOAP Progress Note Assessment/Plan: Assessment: Plan: 07/05/17 13:39 Unable to fully assess patient today. Will return. Will obtain collateral from pt's payee if possible. Utilize prn's for now. 07/08/17 09:03 Remains agitated, hostile. Will continues to encourage meds, place on STC. I am unable to discuss criteria for discontinuing STC due to pt's refusal to talk to me. Will enter petition for COM. 07/08/17 19:55 Remains psychotic, threatening. Will [facility], send request for COM. 07/09/17 15:18 No change. Remains quite psychotic. [facility]. [facility] request sent. Will not allow pt to purposefully incite aggressive or violent behaviors. Will utilize show of force or E-meds if necessary as she is completely unresponsive to verbal redirection. 07/10/17 12:53 No change. CCM. 07/11/17 20:33 Remains psychotic. [facility]. Await hearing for COM. 07/12/17 11:48 Remains psychotic, agitated. [facility]. Await COM hearing. 07/14/17 14:23 No change. Pt's lack of nutritional intake is concerning. Will attempt to intervene. [facility]. Await COM hearing. 07/15/17 17:20 Remains agitated, threatening, aggressive, psychotic. Appreciate input from Nutritional Services. She does not appear to be in a life-threatening situation at this point that would necessitate a feeding tube, but she is close. Will employ E-meds consistently due to urgent nature of nutritional issue and aggression that both have foundations in psychosis. Await hearing for COM. 07/16/17 13:05 No change in clinical condition. Will [facility] inc: Emeds due to gravity of condition. 07/19/17 16:45 Improved with Zyprexa. [facility]. 07/20/17 17:18 Remains psychotic. Will [facility] inc: Emeds. Responding well to this. 07/22/17 17:01 Some overall improvement with Zyprexa. Will cross over to Invega in preparation for Sustenna. 07/23/17 13:31 Will proceed with cross-over to Invega in preparation for Sustenna shot. Subjective: LATE ENTRY FOR 07/21/17 Pt seen, discussed with staff. Remains paranoid and hostile. Taking PO meds with IM backup. Court hearing held and architectural associate approved COM. I attempted to discuss the plan with patient and she refuses to speak to me. Objective: Vital Signs Temp Pulse Resp BP Pulse Ox 36.9 C 56 L 17 119/77 99 07/05/17 06:00 07/05/17 06:00 07/05/17 06:00 07/05/17 06:00 07/05/17 06:00 MSE: Lying in bed, uncoop. Affect is blunted, stable. Mood is not stated. TP appears disorganized. TC reveals paranoia, AH's. - Time Spent With Patient Time Spent With Patient: 55" ICD10 Worksheet Patient Problems: Problems Problem Status Onset Depression Acute
[2017-07-23] MEDS: OLANZapine DISINTEGR 10 MG TAB PO SCH (20:56)
[2017-07-24] MEDS: PALIPERIDONE 3 MG TAB.ER PO SCH (09:06)
--- NOTE | 2017-07-24 16:47 | SOAPPROG ---
SOAP Progress Note Assessment/Plan: Assessment: Per Dr. Egan's notes: 07/20/17 17:18 Remains psychotic. Will [facility] inc: Emeds. Responding well to this. 07/22/17 17:01 Some overall improvement with Zyprexa. Will cross over to Invega in preparation for Sustenna. 07/23/17 13:31 Will proceed with cross-over to Invega in preparation for Sustenna shot. 07/24/17 16:44 1. Patient now on COM. Taking PO Invega. 2. Patient is less hostile than at admission, but still unpleasant and irritable at times. Subjective: Met with patient and discussed with staff. Patient is present in milieu more often and eating and drinking normally. She is very fond of ordering take out. When MD attempts to speak to her, she says, "go and knock on somebody else's door." This is an improvement in attitude and demeanor from last weekend when she told MD to "fuck off." Objective: Vital Signs Temp Pulse Resp BP Pulse Ox 36.9 C 56 L 17 119/77 99 07/05/17 06:00 07/05/17 06:00 07/05/17 06:00 07/05/17 06:00 07/05/17 06:00 MSE: Dressed in scrubs, wearing sunglasses, trying to call for delivery. Affect : Blunted Mood: Irritable at times TP: Illogical TC: Denies any AH/VH, delusions, paranoid, no SI/HI Insight/Judgment: Impaired - Time Spent With Patient Time Spent With Patient: 10" - Pending Discharge Pending Discharge Within 24 Hours: No Pending Discharge Within 48 Hours: No ICD10 Worksheet Patient Problems: Problems Problem Status Onset Depression Acute
[2017-07-24] MEDS: OLANZapine DISINTEGR 10 MG TAB PO SCH (20:04)
[2017-07-25] MEDS: PALIPERIDONE 3 MG TAB.ER PO SCH (08:15)
--- NOTE | 2017-07-25 13:18 | SOAPPROG ---
SOAP Progress Note Assessment/Plan: Assessment: Per Dr. Egan's notes: 07/20/17 17:18 Remains psychotic. Will [facility] inc: Emeds. Responding well to this. 07/22/17 17:01 Some overall improvement with Zyprexa. Will cross over to Invega in preparation for Sustenna. 07/23/17 13:31 Will proceed with cross-over to Invega in preparation for Sustenna shot. 07/24/17 16:44 1. Patient now on COM. Taking PO Invega. 2. Patient is less hostile than at admission, but still unpleasant and irritable at times. 07/25/17 13:16 1. No change - CCM 2. Patient is compliant with PO Invega. Subjective: Patient is less hostile and derogatory to staff, but still refuses to talk to MD other than to tell MD to "get lost." No SI/HI. Compliant with medications. Objective: Vital Signs Temp Pulse Resp BP Pulse Ox 36.9 C 56 L 17 119/77 99 07/05/17 06:00 07/05/17 06:00 07/05/17 06:00 07/05/17 06:00 07/05/17 06:00 MSE: Affect: Labile, irritable Mood: Unchanged TP: Disorganized, illogical TC: No AH/VH, paranoid, delusions, no SI/HI Insight/Judgment: Impaired - Time Spent With Patient Time Spent With Patient: 10" - Pending Discharge Pending Discharge Within 24 Hours: No Pending Discharge Within 48 Hours: No ICD10 Worksheet Patient Problems: Problems Problem Status Onset Depression Acute
[2017-07-25] MEDS ORDERED: OLANZapine 10 MG/2 ML VIAL IM PRN (13:19)
[2017-07-25] MEDS: OLANZapine DISINTEGR 10 MG TAB PO SCH (20:17)
[2017-07-26] MEDS: PALIPERIDONE 3 MG TAB.ER PO SCH (08:48)
--- NOTE | 2017-07-26 16:41 | SOAPPROG ---
SOAP Progress Note Assessment/Plan: Assessment: Schizophrenia versus Schizoaffective Disorder bipolar type Patient is irritable, hostile, paranoid and impulsive and unable to engage in treatment planning. Plan: Patient on court ordered medications Offer Olanzapine 10mg ODT QHS Increase Paliperidone 6mg QAM Monitor patient for 5 minutes and mouth check after AM paliperidone Monitor behavior, impulse control, judgment. 07/26/17 16:45 Subjective: "I don't want to fucking talk to you." Patient refuses interview. Refuses to discuss diagnosis and risks/benefits of medications options and criteria for discharge, walks away from M.D. Objective: Vital Signs Temp Pulse Resp BP Pulse Ox 36.9 C 56 L 17 119/77 99 07/05/17 06:00 07/05/17 06:00 07/05/17 06:00 07/05/17 06:00 07/05/17 06:00 Ambulatory WF, yelling brief profanity, disorganized behaviors. Unable to assess thought content further. Affect irritable. Mood 'I'm not fucking talking to you.' No insight. Staff report patient slept 8 hours, took HS Olanzapine last night and AM Paliperidone. Staff report patient continues to be irritable, brief yelling, tangential at times, hostile, paranoid; inappropriately called 911 and claimed she was held hostage. - Time Spent With Patient Time Spent With Patient: 5 minutes - Pending Discharge Pending Discharge Within 24 Hours: No Pending Discharge Within 48 Hours: No ICD10 Worksheet Patient Problems: Problems Problem Status Onset Depression Acute
[2017-07-26] MEDS: OLANZapine DISINTEGR 10 MG TAB PO SCH (21:09)
[2017-07-27] MEDS: PALIPERIDONE 3 MG TAB.ER PO SCH (10:15)
--- NOTE | 2017-07-27 12:20 | SOAPPROG ---
SOAP Progress Note Assessment/Plan: Assessment: Plan: 07/05/17 13:39 Unable to fully assess patient today. Will return. Will obtain collateral from pt's payee if possible. Utilize prn's for now. 07/08/17 09:03 Remains agitated, hostile. Will continues to encourage meds, place on STC. I am unable to discuss criteria for discontinuing STC due to pt's refusal to talk to me. Will enter petition for COM. 07/08/17 19:55 Remains psychotic, threatening. Will [facility], send request for COM. 07/09/17 15:18 No change. Remains quite psychotic. [facility]. [facility] request sent. Will not allow pt to purposefully incite aggressive or violent behaviors. Will utilize show of force or E-meds if necessary as she is completely unresponsive to verbal redirection. 07/10/17 12:53 No change. CCM. 07/11/17 20:33 Remains psychotic. [facility]. Await hearing for COM. 07/12/17 11:48 Remains psychotic, agitated. [facility]. Await COM hearing. 07/14/17 14:23 No change. Pt's lack of nutritional intake is concerning. Will attempt to intervene. [facility]. Await COM hearing. 07/15/17 17:20 Remains agitated, threatening, aggressive, psychotic. Appreciate input from Nutritional Services. She does not appear to be in a life-threatening situation at this point that would necessitate a feeding tube, but she is close. Will employ E-meds consistently due to urgent nature of nutritional issue and aggression that both have foundations in psychosis. Await hearing for COM. 07/16/17 13:05 No change in clinical condition. Will [facility] inc: Emeds due to gravity of condition. 07/19/17 16:45 Improved with Zyprexa. CCM. 07/20/17 17:18 Remains psychotic. Will [facility] inc: Emeds. Responding well to this. 07/22/17 17:01 Some overall improvement with Zyprexa. Will cross over to Invega in preparation for Sustenna. 07/23/17 13:31 Will proceed with cross-over to Invega in preparation for Sustenna shot. 07/27/17 12:20 Perhaps some improvement. Eating better, out of room more, more conversant. Will [facility]CM. Sustenna on Wednesday. Subjective: Pt seen, discussed with staff, chart reviewed. Up and about the unit this morning, but irritable, hostile, demanding of staff. Unwilling to talk to me per usual. Compliant with PO Invega with threat of IM backup; increased to 6mg today. Objective: Vital Signs Temp Pulse Resp BP Pulse Ox 36.9 C 56 L 17 119/77 99 07/05/17 06:00 07/05/17 06:00 07/05/17 06:00 07/05/17 06:00 07/05/17 06:00 - Time Spent With Patient Time Spent With Patient: 25" ICD10 Worksheet Patient Problems: Problems Problem Status Onset Depression Acute
[2017-07-27] MEDS: OLANZapine DISINTEGR 10 MG TAB PO SCH (19:51)
[2017-07-28] MEDS: PALIPERIDONE 3 MG TAB.ER PO SCH (08:35)
--- NOTE | 2017-07-28 15:56 | SOAPPROG ---
SOAP Progress Note Assessment/Plan: Assessment: Plan: 07/05/17 13:39 Unable to fully assess patient today. Will return. Will obtain collateral from pt's payee if possible. Utilize prn's for now. 07/08/17 09:03 Remains agitated, hostile. Will continues to encourage meds, place on STC. I am unable to discuss criteria for discontinuing STC due to pt's refusal to talk to me. Will enter petition for COM. 07/08/17 19:55 Remains psychotic, threatening. Will [facility], send request for COM. 07/09/17 15:18 No change. Remains quite psychotic. [facility]. [facility] request sent. Will not allow pt to purposefully incite aggressive or violent behaviors. Will utilize show of force or E-meds if necessary as she is completely unresponsive to verbal redirection. 07/10/17 12:53 No change. CCM. 07/11/17 20:33 Remains psychotic. [facility]. Await hearing for COM. 07/12/17 11:48 Remains psychotic, agitated. [facility]. Await COM hearing. 07/14/17 14:23 No change. Pt's lack of nutritional intake is concerning. Will attempt to intervene. [facility]. Await COM hearing. 07/15/17 17:20 Remains agitated, threatening, aggressive, psychotic. Appreciate input from Nutritional Services. She does not appear to be in a life-threatening situation at this point that would necessitate a feeding tube, but she is close. Will employ E-meds consistently due to urgent nature of nutritional issue and aggression that both have foundations in psychosis. Await hearing for COM. 07/16/17 13:05 No change in clinical condition. Will [facility] inc: Emeds due to gravity of condition. 07/19/17 16:45 Improved with Zyprexa. CCM. 07/20/17 17:18 Remains psychotic. Will [facility] inc: Emeds. Responding well to this. 07/22/17 17:01 Some overall improvement with Zyprexa. Will cross over to Invega in preparation for Sustenna. 07/23/17 13:31 Will proceed with cross-over to Invega in preparation for Sustenna shot. 07/27/17 12:20 Perhaps some improvement. Eating better, out of room more, more conversant. Will CCM. Sustenna on Wednesday. 07/28/17 15:54 Improving. Toleratling Invega well. CCM. Sustenna on Wednesday. Subjective: Pt seen, discussed with staff. Refused interview this morning but up at the nurses' station without her sunglasses later in the day and actually greets me and says kapil. Remains compliant with PO Invega despite voicing disagreement with medication treatment in general. Objective: Vital Signs Temp Pulse Resp BP Pulse Ox 36.9 C 56 L 17 119/77 99 07/05/17 06:00 07/05/17 06:00 07/05/17 06:00 07/05/17 06:00 07/05/17 06:00 MSE: Adequately groomed, uncoop, though pleasant later. Affect is constricted , stable. Mood is not stated. TP appears more linear. TC reveals less paranoia as evidenced by being out in the milieu. Makes no threats of violence towards me. - Time Spent With Patient Time Spent With Patient: 15" ICD10 Worksheet Patient Problems: Problems Problem Status Onset Depression Acute
[2017-07-28] MEDS: OLANZapine DISINTEGR 10 MG TAB PO SCH (20:53)
[2017-07-29] MEDS: PALIPERIDONE 3 MG TAB.ER PO SCH (09:23)
--- NOTE | 2017-07-29 17:28 | SOAPPROG ---
SOAP Progress Note Assessment/Plan: Assessment: Plan: 07/05/17 13:39 Unable to fully assess patient today. Will return. Will obtain collateral from pt's payee if possible. Utilize prn's for now. 07/08/17 09:03 Remains agitated, hostile. Will continues to encourage meds, place on STC. I am unable to discuss criteria for discontinuing STC due to pt's refusal to talk to me. Will enter petition for COM. 07/08/17 19:55 Remains psychotic, threatening. Will [facility], send request for COM. 07/09/17 15:18 No change. Remains quite psychotic. [facility]. [facility] request sent. Will not allow pt to purposefully incite aggressive or violent behaviors. Will utilize show of force or E-meds if necessary as she is completely unresponsive to verbal redirection. 07/10/17 12:53 No change. CCM. 07/11/17 20:33 Remains psychotic. [facility]. Await hearing for COM. 07/12/17 11:48 Remains psychotic, agitated. [facility]. Await COM hearing. 07/14/17 14:23 No change. Pt's lack of nutritional intake is concerning. Will attempt to intervene. [facility]. Await COM hearing. 07/15/17 17:20 Remains agitated, threatening, aggressive, psychotic. Appreciate input from Nutritional Services. She does not appear to be in a life-threatening situation at this point that would necessitate a feeding tube, but she is close. Will employ E-meds consistently due to urgent nature of nutritional issue and aggression that both have foundations in psychosis. Await hearing for COM. 07/16/17 13:05 No change in clinical condition. Will [facility] inc: Emeds due to gravity of condition. 07/19/17 16:45 Improved with Zyprexa. CCM. 07/20/17 17:18 Remains psychotic. Will [facility] inc: Emeds. Responding well to this. 07/22/17 17:01 Some overall improvement with Zyprexa. Will cross over to Invega in preparation for Sustenna. 07/23/17 13:31 Will proceed with cross-over to Invega in preparation for Sustenna shot. 07/27/17 12:20 Perhaps some improvement. Eating better, out of room more, more conversant. Will CCM. Sustenna on Wednesday. 07/28/17 15:54 Improving. Toleratling Invega well. CCM. Sustenna on Wednesday. 07/29/17 17:29 Remains hostile. Overall improvement. Will [facility]CM, proceed with d/c planning. Subjective: Pt seen, discussed with staff. She refuses to discuss her treatment again today , yelling, "Get out of my room you f----ing pervert. I hate you." I told her I wanted to discuss the plan for her meds and she just repeats this phrase. Has been eating regularly. Still isolating in her room. Objective: Vital Signs Temp Pulse Resp BP Pulse Ox 36.9 C 56 L 17 119/77 99 07/05/17 06:00 07/05/17 06:00 07/05/17 06:00 07/05/17 06:00 07/05/17 06:00 MSE: Hostile, yelling, profane. Affect is o/w expansive, angry. TP is disorganized. TC reveals paranoia. - Time Spent With Patient Time Spent With Patient: 15" ICD10 Worksheet Patient Problems: Problems Problem Status Onset Depression Acute
[2017-07-29] MEDS: OLANZapine DISINTEGR 10 MG TAB PO SCH (20:12)
[2017-07-29] MEDS: LORazepam 1 MG TAB PO PRN (20:13)
[2017-07-30 06:25] VITALS: BP 105/63; PULSE 61; RESP 15; TEMP 98; O2SAT 96
[2017-07-30] MEDS ORDERED: PALIPERIDONE PALMITATE 234 MG/1.5 ML SYR IM ONE ×2 (09:00→10:30)
[2017-07-30] MEDS: PALIPERIDONE 3 MG TAB.ER PO SCH (09:51)
[2017-07-30] MEDS: OLANZapine DISINTEGR 10 MG TAB PO SCH (19:58)
[2017-07-30] MEDS: LORazepam 1 MG TAB PO PRN (20:10)
[2017-07-31] MEDS: PALIPERIDONE 3 MG TAB.ER PO SCH (08:41)
--- NOTE | 2017-07-31 13:23 | SOAPPROG ---
SOAP Progress Note Assessment/Plan: Assessment: Per Dr. Egan's notes: 07/27/17 12:20 Perhaps some improvement. Eating better, out of room more, more conversant. Will CCM. Sustenna on Wednesday. 07/28/17 15:54 Improving. Toleratling Invega well. CCM. Sustenna on Wednesday. 07/29/17 17:29 Remains hostile. Overall improvement. Will CCM, proceed with d/c planning. 07/31/17 13:20 1. More pleasant and cooperative today. Had Invega Sustenna injection per COM. 2. CCM Subjective: Met with patient, reviewed chart and d/w staff. Patient came out of room briefly to make a request of staff. MD attempted to engage patient in conversation, but she said, "not now." She went back to her room. Staff report she has been more cooperative and pleasant, actually saying "please" and "thank you." Objective: Vital Signs Temp Pulse Resp BP Pulse Ox 36.6 C 61 15 105/63 96 07/30/17 06:00 07/30/17 06:00 07/30/17 06:00 07/30/17 06:00 07/30/17 06:00 MSE: Pleasant, cooperative, still isolates. Affect: Euthymic Mood: "OK" TP: Less delusional and paranoid TC: No SI/HI, no AH/VH Insight/Judgment: Poor, but improving - Time Spent With Patient Time Spent With Patient: 10" - Pending Discharge Pending Discharge Within 24 Hours: No Pending Discharge Within 48 Hours: No ICD10 Worksheet Patient Problems: Problems Problem Status Onset Depression Acute
[2017-07-31] MEDS: OLANZapine DISINTEGR 10 MG TAB PO SCH (20:53)
[2017-08-01] MEDS: PALIPERIDONE 3 MG TAB.ER PO SCH (10:32)
--- NOTE | 2017-08-01 15:34 | SOAPPROG ---
SOAP Progress Note Assessment/Plan: Assessment: Per Dr. Egan's notes: 07/27/17 12:20 Perhaps some improvement. Eating better, out of room more, more conversant. Will CCM. Sustenna on Wednesday. 07/28/17 15:54 Improving. Toleratling Invega well. CCM. Sustenna on Wednesday. 07/29/17 17:29 Remains hostile. Overall improvement. Will [facility], proceed with d/c planning. 07/31/17 13:20 1. More pleasant and cooperative today. Had Invega Sustenna injection per COM. 2. CCM 08/01/17 15:31 1. CCM - no change, still improving. Subjective: Patient still refuses to answer MD's questions. MD spoke to patient several times, but did not get a response. Patient told RN, "tell that man not to speak to me anymore." She said, "he thinks he's the doctor, but he's not." Staff report patient has been more pleasant, cooperative since getting Invega Sustenna. She still isolates in her room and doesn't participate in any milieu activities. Objective: Vital Signs Temp Pulse Resp BP Pulse Ox 36.6 C 61 15 105/63 96 07/30/17 06:00 07/30/17 06:00 07/30/17 06:00 07/30/17 06:00 07/30/17 06:00 MSE: Less hostile and angry. Affect: Blunted Mood: Stable TP: Poverty of speech, irrational TC: Paranoid, delusional, no AH/VH, no SI/HI Insight/ Judgment: Poor - Time Spent With Patient Time Spent With Patient: 10" - Pending Discharge Pending Discharge Within 24 Hours: No Pending Discharge Within 48 Hours: No ICD10 Worksheet Patient Problems: Problems Problem Status Onset Depression Acute
[2017-08-01] MEDS: LORazepam 1 MG TAB PO PRN (17:20)
[2017-08-01] MEDS: OLANZapine DISINTEGR 10 MG TAB PO SCH (21:06)
[2017-08-02] MEDS: PALIPERIDONE 3 MG TAB.ER PO SCH (10:05)
[2017-08-02] MEDS: OLANZapine DISINTEGR 10 MG TAB PO SCH (20:24)
[2017-08-03] MEDS: PALIPERIDONE 3 MG TAB.ER PO SCH (09:09)
--- NOTE | 2017-08-03 14:02 | SOAPPROG ---
SOAP Progress Note Assessment/Plan: Assessment: Plan: 07/05/17 13:39 Unable to fully assess patient today. Will return. Will obtain collateral from pt's payee if possible. Utilize prn's for now. 07/08/17 09:03 Remains agitated, hostile. Will continues to encourage meds, place on STC. I am unable to discuss criteria for discontinuing STC due to pt's refusal to talk to me. Will enter petition for COM. 07/08/17 19:55 Remains psychotic, threatening. Will [facility], send request for COM. 07/09/17 15:18 No change. Remains quite psychotic. [facility]. [facility] request sent. Will not allow pt to purposefully incite aggressive or violent behaviors. Will utilize show of force or E-meds if necessary as she is completely unresponsive to verbal redirection. 07/10/17 12:53 No change. CCM. 07/11/17 20:33 Remains psychotic. [facility]. Await hearing for COM. 07/12/17 11:48 Remains psychotic, agitated. [facility]. Await COM hearing. 07/14/17 14:23 No change. Pt's lack of nutritional intake is concerning. Will attempt to intervene. [facility]. Await COM hearing. 07/15/17 17:20 Remains agitated, threatening, aggressive, psychotic. Appreciate input from Nutritional Services. She does not appear to be in a life-threatening situation at this point that would necessitate a feeding tube, but she is close. Will employ E-meds consistently due to urgent nature of nutritional issue and aggression that both have foundations in psychosis. Await hearing for COM. 07/16/17 13:05 No change in clinical condition. Will [facility] inc: Emeds due to gravity of condition. 07/19/17 16:45 Improved with Zyprexa. CCM. 07/20/17 17:18 Remains psychotic. Will [facility] inc: Emeds. Responding well to this. 07/22/17 17:01 Some overall improvement with Zyprexa. Will cross over to Invega in preparation for Sustenna. 07/23/17 13:31 Will proceed with cross-over to Invega in preparation for Sustenna shot. 07/27/17 12:20 Perhaps some improvement. Eating better, out of room more, more conversant. Will CCM. Sustenna on Wednesday. 07/28/17 15:54 Improving. Toleratling Invega well. [facility]. Sustenna on Wednesday. 07/29/17 17:29 Remains hostile. Overall improvement. Will [facility], proceed with d/c planning. 08/03/17 14:00 Gradual improvement despite ongoing paranoia and hostility. CCM. Second Invega shot due 08/06/17. Subjective: LATE ENTRY FOR 08/02/17. Pt seen, discussed with staff, chart reviewed. She refused to talk to me, shouting, "Get out of here you fucking rosa isela castillo." Staff reports some progress with longer periods of sustained conversation with female staff. Remains hostile towards all males. Objective: Vital Signs Temp Pulse Resp BP Pulse Ox 36.6 C 61 15 105/63 96 07/30/17 06:00 07/30/17 06:00 07/30/17 06:00 07/30/17 06:00 07/30/17 06:00 MSE: Hostile, profane. Appears paranoid. - Time Spent With Patient Time Spent With Patient: 15" ICD10 Worksheet Patient Problems: Problems Problem Status Onset Depression Acute
--- NOTE | 2017-08-03 14:05 | SOAPPROG ---
SOAP Progress Note Assessment/Plan: Assessment: Plan: 07/05/17 13:39 Unable to fully assess patient today. Will return. Will obtain collateral from pt's payee if possible. Utilize prn's for now. 07/08/17 09:03 Remains agitated, hostile. Will continues to encourage meds, place on STC. I am unable to discuss criteria for discontinuing STC due to pt's refusal to talk to me. Will enter petition for COM. 07/08/17 19:55 Remains psychotic, threatening. Will [facility], send request for COM. 07/09/17 15:18 No change. Remains quite psychotic. [facility]. [facility] request sent. Will not allow pt to purposefully incite aggressive or violent behaviors. Will utilize show of force or E-meds if necessary as she is completely unresponsive to verbal redirection. 07/10/17 12:53 No change. CCM. 07/11/17 20:33 Remains psychotic. [facility]. Await hearing for COM. 07/12/17 11:48 Remains psychotic, agitated. [facility]. Await COM hearing. 07/14/17 14:23 No change. Pt's lack of nutritional intake is concerning. Will attempt to intervene. [facility]. Await COM hearing. 07/15/17 17:20 Remains agitated, threatening, aggressive, psychotic. Appreciate input from Nutritional Services. She does not appear to be in a life-threatening situation at this point that would necessitate a feeding tube, but she is close. Will employ E-meds consistently due to urgent nature of nutritional issue and aggression that both have foundations in psychosis. Await hearing for COM. 07/16/17 13:05 No change in clinical condition. Will [facility] inc: Emeds due to gravity of condition. 07/19/17 16:45 Improved with Zyprexa. CCM. 07/20/17 17:18 Remains psychotic. Will [facility] inc: Emeds. Responding well to this. 07/22/17 17:01 Some overall improvement with Zyprexa. Will cross over to Invega in preparation for Sustenna. 07/23/17 13:31 Will proceed with cross-over to Invega in preparation for Sustenna shot. 07/27/17 12:20 Perhaps some improvement. Eating better, out of room more, more conversant. Will CCM. Sustenna on Wednesday. 07/28/17 15:54 Improving. Toleratling Invega well. CCM. Sustenna on Wednesday. 07/29/17 17:29 Remains hostile. Overall improvement. Will CCM, proceed with d/c planning. 08/03/17 14:00 Gradual improvement despite ongoing paranoia and hostility. CCM. Second Invega shot due 08/06/17. 08/03/17 14:04 No change. CCM. Subjective: Pt seen, discussed with staff. Continues to refuse interview. Compliant with meds. Objective: Vital Signs Temp Pulse Resp BP Pulse Ox 36.6 C 61 15 105/63 96 07/30/17 06:00 07/30/17 06:00 07/30/17 06:00 07/30/17 06:00 07/30/17 06:00 MSE: Disheveled, uncoop., hostile, paranoid. - Time Spent With Patient Time Spent With Patient: 15" ICD10 Worksheet Patient Problems: Problems Problem Status Onset Depression Acute
[2017-08-03] MEDS: OLANZapine DISINTEGR 10 MG TAB PO SCH (20:33)
[2017-08-03] MEDS: LORazepam 1 MG TAB PO PRN (20:45)
[2017-08-04] MEDS: PALIPERIDONE 3 MG TAB.ER PO SCH (08:08)
--- NOTE | 2017-08-04 12:57 | SOAPPROG ---
SOAP Progress Note Assessment/Plan: Assessment: Plan: 07/05/17 13:39 Unable to fully assess patient today. Will return. Will obtain collateral from pt's payee if possible. Utilize prn's for now. 07/08/17 09:03 Remains agitated, hostile. Will continues to encourage meds, place on STC. I am unable to discuss criteria for discontinuing STC due to pt's refusal to talk to me. Will enter petition for COM. 07/08/17 19:55 Remains psychotic, threatening. Will [facility], send request for COM. 07/09/17 15:18 No change. Remains quite psychotic. [facility]. [facility] request sent. Will not allow pt to purposefully incite aggressive or violent behaviors. Will utilize show of force or E-meds if necessary as she is completely unresponsive to verbal redirection. 07/10/17 12:53 No change. CCM. 07/11/17 20:33 Remains psychotic. [facility]. Await hearing for COM. 07/12/17 11:48 Remains psychotic, agitated. [facility]. Await COM hearing. 07/14/17 14:23 No change. Pt's lack of nutritional intake is concerning. Will attempt to intervene. [facility]. Await COM hearing. 07/15/17 17:20 Remains agitated, threatening, aggressive, psychotic. Appreciate input from [facility] Services. She does not appear to be in a life-threatening situation at this point that would necessitate a feeding tube, but she is close. Will employ E-meds consistently due to urgent nature of nutritional issue and aggression that both have foundations in psychosis. Await hearing for COM. 07/16/17 13:05 No change in clinical condition. Will [facility] inc: Emeds due to gravity of condition. 07/19/17 16:45 Improved with Zyprexa. CCM. 07/20/17 17:18 Remains psychotic. Will [facility] inc: Emeds. Responding well to this. 07/22/17 17:01 Some overall improvement with Zyprexa. Will cross over to Invega in preparation for Sustenna. 07/23/17 13:31 Will proceed with cross-over to Invega in preparation for Sustenna shot. 07/27/17 12:20 Perhaps some improvement. Eating better, out of room more, more conversant. Will CCM. Sustenna on Wednesday. 07/28/17 15:54 Improving. Toleratling Invega well. CCM. Sustenna on Wednesday. 07/29/17 17:29 Remains hostile. Overall improvement. Will [facility], proceed with d/c planning. 08/03/17 14:00 Gradual improvement despite ongoing paranoia and hostility. [facility]. Second Invega shot due 08/06/17. 08/03/17 14:04 No change. CCM. 08/04/17 12:55 Schizoaffective D/o: No change. [facility]. Invega Sustenna on Wednesday with d/c following. Subjective: Pt seen, discussed with staff. Continues to isolate in her room. More conversant with CC, though unable to formulate a detailed d/c plan. Wants to return to [place] to retrieve some belongings from a usp. Identifies financial resources and knowledge of social support systems. Has spoken to only local relative. Refuses to allow our staff to assist with d/c and f/u arrangements. Remains compliant with PO meds. Continues to refuse to talk to me. Objective: Vital Signs Temp Pulse Resp BP Pulse Ox 36.6 C 61 15 105/63 96 07/30/17 06:00 07/30/17 06:00 07/30/17 06:00 07/30/17 06:00 07/30/17 06:00 MSE: Hostile, uncoop., profane. Will not speak to me. - Time Spent With Patient Time Spent With Patient: 15" ICD10 Worksheet Patient Problems: Problems Problem Status Onset Depression Acute
[2017-08-04] MEDS: LORazepam 1 MG TAB PO PRN (20:28)
[2017-08-04] MEDS: OLANZapine DISINTEGR 10 MG TAB PO SCH (20:28)
[2017-08-05] MEDS: PALIPERIDONE 3 MG TAB.ER PO SCH (10:18)
--- NOTE | 2017-08-05 16:11 | SOAPPROG ---
SOAP Progress Note Assessment/Plan: Assessment: Plan: 07/05/17 13:39 Unable to fully assess patient today. Will return. Will obtain collateral from pt's payee if possible. Utilize prn's for now. 07/08/17 09:03 Remains agitated, hostile. Will continues to encourage meds, place on STC. I am unable to discuss criteria for discontinuing STC due to pt's refusal to talk to me. Will enter petition for COM. 07/08/17 19:55 Remains psychotic, threatening. Will [facility], send request for COM. 07/09/17 15:18 No change. Remains quite psychotic. [facility]. [facility] request sent. Will not allow pt to purposefully incite aggressive or violent behaviors. Will utilize show of force or E-meds if necessary as she is completely unresponsive to verbal redirection. 07/10/17 12:53 No change. CCM. 07/11/17 20:33 Remains psychotic. [facility]. Await hearing for COM. 07/12/17 11:48 Remains psychotic, agitated. [facility]. Await COM hearing. 07/14/17 14:23 No change. Pt's lack of nutritional intake is concerning. Will attempt to intervene. [facility]. Await COM hearing. 07/15/17 17:20 Remains agitated, threatening, aggressive, psychotic. Appreciate input from Nutritional Services. She does not appear to be in a life-threatening situation at this point that would necessitate a feeding tube, but she is close. Will employ E-meds consistently due to urgent nature of nutritional issue and aggression that both have foundations in psychosis. Await hearing for COM. 07/16/17 13:05 No change in clinical condition. Will [facility] inc: Emeds due to gravity of condition. 07/19/17 16:45 Improved with Zyprexa. CCM. 07/20/17 17:18 Remains psychotic. Will [facility] inc: Emeds. Responding well to this. 07/22/17 17:01 Some overall improvement with Zyprexa. Will cross over to Invega in preparation for Sustenna. 07/23/17 13:31 Will proceed with cross-over to Invega in preparation for Sustenna shot. 07/27/17 12:20 Perhaps some improvement. Eating better, out of room more, more conversant. Will CCM. Sustenna on Wednesday. 07/28/17 15:54 Improving. Toleratling Invega well. CCM. Sustenna on Wednesday. 07/29/17 17:29 Remains hostile. Overall improvement. Will CCM, proceed with d/c planning. 08/03/17 14:00 Gradual improvement despite ongoing paranoia and hostility. [facility]. Second Invega shot due 08/06/17. 08/03/17 14:04 No change. CCM. 08/04/17 12:55 Schizoaffective D/o: No change. [facility]. Invega Sustenna on Wednesday with d/c following. 08/05/17 16:12 Clearly improved over admission. CCM. Likely d/c tomorrow after Sustenna. Subjective: Pt seen, discussed with staff. More interactive with CC yesterday. Able to work on d/c plan. Remains paranoid, however, refusing to disclose details of her plans or to involve family for fear they will be harmed. Compliant with PO meds. Objective: Vital Signs Temp Pulse Resp BP Pulse Ox 36.6 C 61 15 105/63 96 07/30/17 06:00 07/30/17 06:00 07/30/17 06:00 07/30/17 06:00 07/30/17 06:00 MSE: Hostile, paranoid, uncoop. Grooming appears better. - Time Spent With Patient Time Spent With Patient: 15" ICD10 Worksheet Patient Problems: Problems Problem Status Onset Depression Acute
[2017-08-05] MEDS ORDERED: OLANZapine DISINTEGR 5 MG TAB ONE (19:54)
[2017-08-05] MEDS: OLANZapine DISINTEGR 10 MG TAB PO SCH (20:13)
[2017-08-05] MEDS: LORazepam 1 MG TAB PO PRN (20:22)
[2017-08-05] MEDS ORDERED: OLANZapine DISINTEGR 5 MG TAB PO SCH (21:00)
[2017-08-06] MEDS: PALIPERIDONE 3 MG TAB.ER PO SCH (09:00)
[2017-08-06] MEDS ORDERED: PALIPERIDONE PALMITATE 156 MG/ML SYR IM ONE (09:00)
--- NOTE | 2017-08-06 19:18 | BDS ---
[f rep st] BEHAVIORAL HEALTH DISCHARGE SUMMARY REASON FOR ADMISSION: Patient is a 42-year-old female who was admitted from the emergency department after having been brought in from the walk-in clinic by police on an M1 hold. She presented to that facility requesting housing and other supports and when they suggested that she seek some form of [facility] treatment became extremely agitated and threatening and was placed on a hold. She was ad mitted to our facility for further evaluation and treatment. A full description of the events preced ing admission can be found in her admission history dated 07/05/2017. ADMITTING DIAGNOSES: Bipolar 1 disorder, most recent episode manic, severe, with psychosis. Possibl e schizoaffective disorder bipolar type, homelessness, lack of supports, recent travel, chronic illne ss, treatment noncompliance. ADMITTING PHYSICAL EXAMINATION: Performed by Dr. Ole Esparza reveals no acute physical findings. ADMISSION LABORATORY: CBC showed a platelet count up at 410,000 otherwise normal. Serum chemistries were normal. Beta hCG was negative. TSH was normal at 1.47. Urine drug screen showed no substance s of abuse and alcohol was less than detectable. HOSPITAL COURSE: Patient admitted to [facility] inpatient unit on an M1 hold. She was extremely paranoid, hostile and uncooperative. I attempted on multiple occasions to perform a full admission evaluation and was unsuccessful. She was profane especially toward males and made numerous angry profane and sexual remarks any time I would ask to speak with her. Ultimately, I was forced t o employ emergency medications due to her aggressive behaviors toward staff and her refusal to eat. She was paranoid, believing her food was poisoned and would only eat prepackaged foods. She then beg an refusing all foods and had lost almost 20 pounds. We began to use p.o. Zyprexa with an IM back up and she became compliant with p.o. medications fairly quickly. We then went to court where the cour t granted court-ordered medications. At that time I did a crossover from Zyprexa to Invega starting at 3 mg and then 6 mg. after establishing tolerability of the oral Invega, we proceeded with giving her the Invega Sustenna. She received 234 mg on 07/30/2017 and tolerated this well with no side effe cts. Then on 08/06/2017 she received the followup 156 mg and also tolerated this well. Patient's hospitalization was only complicated by numerous episodes of verbal aggression. At one poi nt, she did throw a food tray at staff but other than that, she displayed no other physical aggressio n. She isolated in her room, refused to participate in groups and mainly stayed in bed. Attempts to encourage her to leave her room or participate more actively were unsuccessful. When she was in the milieu briefly at times, she would insult other patients or find other agitated patients and try to incite them. She was overall a very negative influence on the milieu. Her paranoia and hostility toward men did not change during her stay. She was able, however, to open up eventually with female staff a little bit more and worked with a care aide to try to estab bambi a discharge plan prior to leaving. Unfortunately, she was still paranoid and stated that she wo uld not disclose the details of her plan but was willing to accept information in regard to resources both in the [facility] and [place]. She was very knowledgeable about these resources and had noteb ooks with very specific references to the various custodial and support resources in the [facility]. She also had a check card on which there was at least some amount of money and she used it to buy carmen d on at least one occasion during her hospitalization. She indicated to the care aide that ed had sufficient funds to support herself in the short-term. Contact was made with an aunt and uncle in [place] though she refused to allow them to be involved in her care. They stated that this was a chronic problem for her and that she had been paranoid for many years and that they were not willin to support her but that there was a cousin who lived in [place] who could be a point of contact. She talked to this person on one occasion, but refused to allow him to be involved in her care. Patient was eventually considered to be at baseline and after she received her 2nd Invega kalie Stovall as allowed to be discharged to her own recognizance. It was clear by this time that the psychosis wa s enduring and she almost certainly represented a schizoaffective disorder. Condition on discharge was stable. She remained hostile and paranoid toward males but had softened s ignificantly towards females. This was thought to be a baseline condition. She was compliant with h er oral medications though is unclear whether she would remain so after discharge. DISCHARGE MEDICATIONS: Were the Invega 6 mg daily and she had just received her 2nd Invega Sustenna shot on the day of discharge. DISCHARGE DIAGNOSES: Schizoaffective disorder, bipolar type, chronic with acute exacerbation; homele ssness, lack of supports, chronic illness, recurrent illness. DISPOSITION: Patient left the hospital of her own recognizance with numerous written materials in re ivan to local resources. She was also given a bus pass. Followup was unable to be formally scheduled as she was refusing to allow us though she made some ind ication she would see the [facility] in [place] and was familiar with this resource. LEGAL COURSE: Patient was placed on a short-term certification at the expiration of her M1 hold. Jas ward had received a court-ordered medication order attached to the Short Term certification. These were dropped at the time of her discharge. /[id number]
== END 2017-08-06 10:35 | disposition home or self-care (01) | DRG 885 ==
LOC: BBEH 21:40
PROVIDERS: ADMIT Psychiatry & Neurology Psychiatry; ATTEND Psychiatry & Neurology Psychiatry
DX: F25.0 Schizoaffective disorder, bipolar type (principal); Z59.0 Homelessness; Q07.8 Other specified congenital malformations of nervous system
CPT/HCPCS: 80305; G0480; J2426